=== PATIENT | male | born 1985 | race Caucasian/White ===

== ENCOUNTER 2019-01-14 19:14 | Emergency (ER) | payer BC ==
[2019-01-14] MEDS ORDERED: Ondansetron ODT 4 MG TAB ONE (20:30)
--- NOTE | 2019-01-14 20:38 | RAD ---
Chest one view HISTORY: Congestion. Cough. FINDINGS: No comparison. Cardiac silhouette is magnified by projection. Pulmonary vasculature is unre markable. Mediastinum is midline. No lobar consolidation or evidence of pneumothorax. IMPRESSION: No active cardiopulmonary abnormalities are demonstrated.
== END 2019-01-14 21:00 | disposition home or self-care (01) ==
LOC: ERS 19:14
DX: J06.9 Acute upper respiratory infection, unspecified (principal); R11.2 Nausea with vomiting, unspecified; F17.210 Nicotine dependence, cigarettes, uncomplicated
CPT/HCPCS: 71045; Q0162

== ENCOUNTER 2021-11-04 09:59 | Emergency (ER) | payer OTHER, BC ==
[2021-11-04] MEDS ORDERED: Orphenadrine Citrate 60 MG/2 ML VIAL ONE (11:39)
[2021-11-04] MEDS ORDERED: Acetaminophen 500 MG TAB ONE (11:39)
[2021-11-04] MEDS ORDERED: Ketorolac Tromethamine 30 MG/ML VIAL ONE (11:39)
== END 2021-11-04 12:57 | disposition home or self-care (01) ==
LOC: ERS 09:59
DX: M54.50 Low back pain, unspecified (principal); V68.3XXA Unspecified occupant of heavy transport vehicle injured in noncollision transport accident in nontraffic accident, initial encounter; F17.210 Nicotine dependence, cigarettes, uncomplicated
CPT/HCPCS: 96372; 99283; J1885; J2360